=== PATIENT | male | born 1960 | race Caucasian/White ===

== ENCOUNTER 2022-04-03 09:41 | Emergency (ER) | payer BC, SELFPAY ==
[2022-04-03 09:44] VITALS: BP 180/93; PULSE 57; RESP 18; TEMP 36.8; O2SAT 99; BMI 30.3
[2022-04-03 10:11] VITALS: O2SAT 99
--- NOTE | 2022-04-03 10:34 | ED_ITS ---
HPI - General Adult General Chief complaint: High Blood Pressure Stated complaint: elevated bp Time Seen by Provider: 04/03/22 10:03 Source: patient Mode of arrival: ambulatory Limitations: no limitations History of Present Illness HPI narrative: 62-year-old male coming in today concerned about high blood pressure. States that his blood pressure generally in the 130s systolic. In the last 6 months they have been up into the 150s so 2 days ago he started a new dose of lisinopril at 30 mg daily this medicine came from the [facility], patient does believe his medicines were made in [place]. This morning his blood pressure was 210 systolic. He was seen by his clinic doctor this morning who recommended he come to the ER because he was also feeling slightly lightheaded, mild headache on the left side of the head, and he was also beginning to develop some mild chest pressure on the left side of the chest. He does not feel short of breath. He is not diaphoretic. He states that his lightheadedness is better already. Related Data Home Medications Medication Instructions Recorded Confirmed aspirin 81 mg chewable tablet 81 mg PO DAILY 04/03/22 04/03/22 (Aspirin Childrens) atorvastatin 40 mg tablet 40 mg PO DAILY 04/03/22 04/03/22 cetirizine 10 mg tablet 10 mg PO DAILY 04/03/22 04/03/22 ipratropium bromide 21 mcg (0.03 2 spray intranasal DAILY 04/03/22 04/03/22 %) nasal spray lisinopril 30 mg tablet 30 mg PO DAILY 04/03/22 04/03/22 metoprolol succinate 25 mg 25 mg PO DAILY 04/03/22 04/03/22 tablet,extended release 24 hr omeprazole 20 mg capsule,delayed 20 mg PO DAILY 04/03/22 04/03/22 release sildenafil 100 mg tablet 100 mg PO PRN 04/03/22 Allergies Allergy/AdvReac Type Severity Reaction Status Date / Time bee pollen Allergy Swelling Verified 04/03/22 09:51 Penicillins Allergy Verified 04/03/22 09:51 shellfish derived Allergy Anaphylaxis Verified 04/03/22 09:51 sharma spice Allergy swelling Uncoded 09/15/21 13:04 Review of Systems Status of ROS: Reports: 10 or more systems reviewed and unremarkable except as noted in History and below [facility] Medical History GERD (gastroesophageal reflux disease) Hypertension Surgical History History of total left knee replacement Social History Smoking Status: Current every day smoker What tobacco products do you use: cigarettes Smoking packs per day: 0.5 Smoking cigarettes per day: 10.0 Do you use any of these nicotine containing products: None Second hand tobacco smoke exposure: No How often do you have a drink containing alcohol: 2-3 times a week How many standard drinks containing alcohol do you have on a typical day: 1 or 2 AUDIT-C Alcohol total score: 3 Non-prescribed substance use: marijuana (any form) service: No Exam Narrative: Exam Narrative: Well-nourished well-developed patient in no acute distress. Looks older than stated age. Alert and oriented. Answers questions appropriately. Mood and affect are appropriate. Thoughts are goal oriented and rational. No tangential or magical thinking noted. Patient speaks in full sentences without needing to catch their breath. HEENT: Normocephalic atraumatic. Pupils are equally round reactive to light. Extraocular muscles are intact. Conjunctivae are moist without any icterus noted. Moist mucous membranes. Posterior pharynx is normal. Neck is soft without any lymphadenopathy or thyromegaly. No masses are appreciated. Cardiovascular: Heart is regular rate and rhythm S1 and S2 are present without any murmurs. Lungs: Clear to auscultation bilaterally no wheezes rhonchi or rales are appreciated. Patient takes deep breaths without any discomfort. Abdomen: Soft and protuberant. Normal bowel sounds. No guarding or rebound. Extremities: Bilateral lower extremities are without edema. Normal DP and PT pulses. Skin: Well perfused without any obvious rashes. Const: Vital Signs, click to edit/add: Vital Signs - 24 hr 04/03/22 09:44 04/03/22 10:11 04/03/22 11:40 Temperature 98.3 F Pulse Rate [Right Pulse Oximeter] 57 L 56 L Respiratory Rate 18 16 Blood Pressure [Ri ght Upper Arm] 180/93 H 133/83 Pulse Oximetry 99 99 98 Oxygen Delivery Me thod Room Air Room Air Course Course Hospital Course: EKG, read by me, showed sinus bradycardia with a pulse of 56 with premature ventricular complexes. Serial troponins unremarkable. Lab work unremarkable. As patient waited for lab results he did relax and his blood pressure did come down quite nicely to 133/83. He was not having any more dizziness or chest discomfort like he felt this morning. He stated that his headache was about a 2/10. Patient was feeling reassured and comfortable with discharge. Vital Signs Vital signs: Initial Vital Signs Temperature 98.3 F 04/03/22 09:44 Temperature Source Temporal Artery Scan 04/03/22 09:44 Pulse Rate 57 L 04/03/22 09:44 Respiratory Rate 18 04/03/22 09:44 Blood Pressure 180/93 H 04/03/22 09:44 Blood Pressure Mean 122 04/03/22 09:44 Blood Pressure Position Sitting 04/03/22 09:44 Pulse Oximetry 99 04/03/22 09:44 Oxygen Delivery Method 04/03/22 09:44 Vital Signs Temperature 98.3 F 04/03/22 09:44 Pulse Rate 57 L 04/03/22 09:44 Respiratory Rate 18 04/03/22 09:44 Blood Pressure 180/93 H 04/03/22 09:44 Pulse Oximetry 99 04/03/22 09:44 Oxygen Delivery Method 04/03/22 09:44 Temperature 98.3 F 04/03/22 09:44 Pulse Rate 56 L 04/03/22 11:40 Respiratory Rate 16 04/03/22 11:40 Blood Pressure 133/83 04/03/22 11:40 Pulse Oximetry 98 04/03/22 11:40 Oxygen Delivery Method 04/03/22 11:40 Medical Decision Making MDM Narrative Medical decision making narrative: Elevated blood pressure. Resolved on its own. Patient to continue his current treatment follow-up with primary care provider. Return to the ER if he develops chest pain or shortness of breath. Medical Records Medical records reviewed: Yes I reviewed the patient's medical records Lab Data Lab results reviewed: Yes I reviewed the patient's lab results Labs: Lab Results 04/03/22 04/03/22 04/03/22 Range/Units 10:11 10:25 10:25 WBC 7.02 (4.50-11.00) K/uL RBC 4.73 (4.30-5.90) m/uL Hgb 15.9 (13.5-17.5) gm/dL Hct 46.5 (37.0-53.0) % MCV 98 (80-100) fL MCH 34 (26-34) pg MCHC 34 (32-36) gm/dL RDW Coeff of Alon 12.8 (11.5-15.5) % Plt Count 208 (140-440) K/uL Neut % (Auto) 60.0 (42.0-72.0) % Lymph % (Auto) 26.8 (20-44) % Wise % (Auto) 9.3 (0.0-11.0) % Eos % (Auto) 3.6 (0.0-7.0) % Baso % (Auto) 0.3 (0.0-3.0) % Neut # (Auto) 4.22 (1.7-7.0) K/uL Lymph # (Auto) 1.88 (0.90-2.90) K/uL Wise # (Auto) 0.70 (0.00-0.90) K/UL Eos # (Auto) 0.25 (0.00-0.50) K/uL Baso # (Auto) 0.02 (0.00-0.30) K/uL Sodium 138 (135-149) mmol/L Potassium 4.1 (3.6-5.1) mmol/L Chloride 108 (96-114) mmol/L Carbon Dioxide 27 (20-32) mmol/L BUN 21 (7-30) mg/dL Creatinine 0.9 (0.5-1.5) mg/dL Estimated Creat Clear 74.63 Estimated GFR 95 ml/min Glucose 102 (60-115) mg/dL Calcium 8.8 (8.4-10.6) mg/dL Total Bilirubin 0.7 (0.1-1.5) mg/dL Direct Bilirubin 0.1 (0.0-0.5) mg/dL AST 29 (12-35) U/L ALT 37 (4-50) U/L Alkaline Phosphatase 71 (40-150) U/L Total Protein 7.4 (6.0-8.3) g/dL Albumin 4.3 (3.3-5.0) g/dL POC Troponin I 0.01 (0.01-0.04) ng/ml 04/03/22 Range/Units 11:40 WBC (4.50-11.00) K/uL RBC (4.30-5.90) m/uL Hgb (13.5-17.5) gm/dL Hct (37.0-53.0) % MCV (80-100) fL MCH (26-34) pg MCHC (32-36) gm/dL RDW Coeff of Alon (11.5-15.5) % Plt Count (140-440) K/uL Neut % (Auto) (42.0-72.0) % Lymph % (Auto) (20-44) % Wise % (Auto) (0.0-11.0) % Eos % (Auto) (0.0-7.0) % Baso % (Auto) (0.0-3.0) % Neut # (Auto) (1.7-7.0) K/uL Lymph # (Auto) (0.90-2.90) K/uL Wise # (Auto) (0.00-0.90) K/UL Eos # (Auto) (0.00-0.50) K/uL Baso # (Auto) (0.00-0.30) K/uL Sodium (135-149) mmol/L Potassium (3.6-5.1) mmol/L Chloride (96-114) mmol/L Carbon Dioxide (20-32) mmol/L BUN (7-30) mg/dL Creatinine (0.5-1.5) mg/dL Estimated Creat Clear Estimated GFR ml/min Glucose (60-115) mg/dL Calcium (8.4-10.6) mg/dL Total Bilirubin (0.1-1.5) mg/dL Direct Bilirubin (0.0-0.5) mg/dL AST (12-35) U/L ALT (4-50) U/L Alkaline Phosphatase (40-150) U/L Total Protein (6.0-8.3) g/dL Albumin (3.3-5.0) g/dL POC Troponin I 0.01 (0.01-0.04) ng/ml ECG Data Attestation: I personally reviewed and interpreted this ECG as follows: Discharge Plan Discharge Clinical Impression: Elevated blood pressure reading Patient Disposition: Home, Self-Care Condition: Improved Additional Instructions: Continue medications as prescribed. Follow-up with your primary care provider this coming week. Return to the ER if you develop any chest pain or worsening symptoms. Prescriptions: No Action lisinopril 30 mg tablet 30 mg PO DAILY metoprolol succinate 25 mg tablet extended release 24 hr 25 mg PO DAILY atorvastatin 40 mg tablet 40 mg PO DAILY omeprazole 20 mg capsule,delayed release(DR/EC) 20 mg PO DAILY ipratropium bromide 21 mcg (0.03 %) spray,non-aerosol 2 spray INTRANASAL DAILY Label Comments: USE 2 SPRAYS IN EACH NOSTRIL THREE TIMES DAILY cetirizine 10 mg tablet 10 mg PO DAILY sildenafil 100 mg tablet 100 mg PO PRN Label Comments: TAKE 1 TABLET BY MOUTH DAILY NEEDED FOR ERECTILE DYSFUNCTION . TAKE 30 MINUTES TO 4 HOURS BEFORE ACTIVITY . NO MORE THAN 1 TABLET PER DAY aspirin [Aspirin Childrens] 81 mg tablet,chewable 81 mg PO DAILY Follow Up/Referrals: Maria Isabel Marquez DO [Primary Care Provider] - Stand Alone Forms: barcoo Info Instructions
[2022-04-03 10:35] LABS: Basophils Absolute Auto 0.02 K/uL (0.00-0.30); Basophils Percent Auto 0.3 % (0.0-3.0); Eosinophils Absolute Auto 0.25 K/uL (0.00-0.50); Eosinophils Percent Auto 3.6 % (0.0-7.0); Hematocrit 46.5 % (37.0-53.0); Hemoglobin* 15.9 gm/dL (13.5-17.5); Lymphocytes Absolute Auto 1.88 K/uL (0.90-2.90); Lymphocytes Percent Auto 26.8 % (20-44); Mean Corpuscular HGB Conc 34 gm/dL (32-36); Mean Corpuscular Hemoglobin 34 pg (26-34); Mean Corpuscular Volume 98 fL (80-100); Monocytes Percent Auto 9.3 % (0.0-11.0); Neutrophils Absolute Auto 4.22 K/uL (1.7-7.0); Platelet Count* 208 K/uL (140-440); RDW Coefficient of Variation % 12.8 % (11.5-15.5); Red Blood Count 4.73 m/uL (4.30-5.90); White Blood Count* 7.02 K/uL (4.50-11.00)
[2022-04-03 10:36] LABS: Slide Review Reflex No
[2022-04-03 10:47] LABS: Albumin* 4.3 g/dL (3.3-5.0)
[2022-04-03 10:48] LABS: Chloride* 108 mmol/L (96-114); Potassium* 4.1 mmol/L (3.6-5.1); Sodium* 138 mmol/L (135-149)
[2022-04-03 10:50] LABS: Bilirubin Direct* 0.1 mg/dL (0.0-0.5); Bilirubin Total* 0.7 mg/dL (0.1-1.5); Carbon Dioxide* 27 mmol/L (20-32); Creatinine* 0.9 mg/dL (0.5-1.5); Est. Creatinine Clearance* 74.63; Estimated Glomerular Filt Rate 95 ml/min
[2022-04-03 10:51] LABS: Alanine Aminotransferase* 37 U/L (4-50); Alkaline Phosphatase* 71 U/L (40-150); Aspartate Amino Transferase* 29 U/L (12-35); Blood Urea Nitrogen* 21 mg/dL (7-30); Calcium* 8.8 mg/dL (8.4-10.6); Glucose* 102 mg/dL (60-115); Total Protein* 7.4 g/dL (6.0-8.3)
[2022-04-03 10:56] LABS: Troponin, Point-of-Care* 0.01 ng/ml (0.01-0.04)
[2022-04-03 11:40] VITALS: BP 133/83; PULSE 56; RESP 16; O2SAT 98
[2022-04-03 12:24] LABS: Troponin, Point-of-Care* 0.01 ng/ml (0.01-0.04)
== END 2022-04-03 13:07 | disposition home or self-care (01) ==
PROVIDERS: Emergency Provider Family Medicine; PCP Family Medicine
DX: I10 Essential (primary) hypertension (principal)
CPT/HCPCS: 36415; 80048; 80076; 84484; 85025; 93005; 94761; 99284

== ENCOUNTER 2024-02-25 16:49 | Emergency (ER) | payer OTHER, SELFPAY ==
[2024-02-25 18:09] VITALS: BP 154/80; PULSE 63; RESP 16; TEMP 36.5; O2SAT 96; BMI 30.8
--- OUTSIDE RECORDS SUMMARY | 2024-02-25 18:47 | XMS_ITS | Clinical Summary ---
Author Organization [facility] Address [address] [place] [id number] Care Team Providers Care Clinical Nursing Director Name Role Phone Maria Isabel Marquez DO Primary Care Provider [phone] Allergies Active Allergy Reactions Criticality Noted Date Comments Penicillins 12/02/2018 Medications lisinopril (PRINIVIL/ZESTRI L) 20 MG tablet Take 20 mg by mouth daily Active metoprolol tartrate (LOPRESSOR) 50 MG tablet Take 50 mg by mouth 2 times daily Active Social History Tobacco Use Types Packs/Day Years Used Date Smoking Tobacco: Never Smokeless Tobacco: Never Alcohol Use Standard Drinks/Week Comments Not Currently 0 (1 standard drink = 0.6 oz pur e alcohol) Adolescent Education Answer Date Record ed Getting School Help Needed Not on file 12/05 Sex and Gender Information Value Date Recorded Sex Assigned at Not on file Legal Sex Male 3:[address] Gender Identity Not on file Sexual Orientation Not on file Last Filed Vital Signs Vital Sign Reading Time Taken Comments Blood Pressure 151/90 04/26/2022 8:[address] MANAGER Pulse 56 04/26/2022 8:[address] MANAGER Temperature 36.7 C (98.1 F) 04/26/2022 7:[address] MANAGER Respiratory Rate 20 04/26/2022 7:[address] MANAGER Oxygen Saturation 100% 04/26/2022 8:[address] MANAGER Inhaled Oxygen Concentration - - Weight 88.5 kg (195 lb) 12/02/2018 5:19 AM CDT Height - - Body Mass Index - - Plan of Treatment Health Maintenance Due Date Last Done Comments ADVANCE CARE PLANNING 1960 ANNUAL REVIEW OF HM ORDERS 1958 CT COLONOGRAPHY 1958 FLEX SIG 1958 sDNA (Cologuard) 1958 COLONOSCOPY 01/07/1968 HEPATITIS C SCREENING 01/07/1976 LIPID 1998 COLORECTAL CANCER SCREENING 12/26/2005 FIT 12/26/2005 12/26/2004 DTAP/TDAP/TD IMMUNIZATION (2 - Td or Tdap) 12/21/2021 12/22/2011 Pneumococcal Vaccine: 50+ Years (2 of 2 - PCV) 01/22/2022 01/22/2021 FALL RISK ASSESSMENT 2023 MEDICARE ANNUAL WELLNESS VISIT 2023 01/17/2020 COVID-19 Vaccine ( season) 2023 07/25/2020, 06/27/2020 INFLUENZA VACCINE (#1) 2023 0, 02/23/2019, 02/13/2016, Additional history exists PHQ-2 (once per calendar year) 2024 GLUCOSE 04/26/2025 04/26/2022, 11/22, 12/26/2004 RSV VACCINE (1 - 1-dose 75+ series) 2033 ZOSTER IMMUNIZATION Completed 04/08/2020, 0 HPV IMMUNIZATION Aged Out No longer e ligible based on patient's age to complete this topic MENINGITIS IMMUNIZATION Aged Out No l onger eligible based on patient's age to complete this topic RSV MONOCLONAL ANTIBODY Aged Out No l onger eligible based on patient's age to complete this topic Procedures Procedure Name Priority Date/Time Associated Diagnosis Comments COMPREHENSIVE METABOLIC PANEL STAT 04/26/2022 8:[address] MANAGER OCCULT BLOOD STOOL STAT 12/26/2004 6: [address] MANAGER from Last 3 Months or Most Recently Relevant to Health Maintenance Results * (ABNORMAL) Comprehensive metabolic panel (04/26/2022 8:[address] MANAGER) Sodium 137 136 - 145 mmol/L 04/26/2022 9:[address] MANAGER [facility] Potassium 4.6 3.4 - 5.3 mmol/L 04/26/2022 9:[address] MANAGER [facility] Chloride 103 98 - 107 mmol/L 04/26/2022 9:12 AM [facility] Carbon Dioxide (CO2) 25 22 - 29 mmol/L 04/26/2022 9:12 AM [facility] Anion Gap 9 7 - 15 mmol/L 04/26/2022 9:12 AM [facility] Urea Nitrogen 23.3(H) 8.0 - 23.0 mg/dL 04/26/2022 9:12 AM [facility] Creatinine 1.02 0.67 - 1.17 mg/dL 04/26/2022 9:12 AM [facility] Calcium 9.2 8.8 - 10.2 mg/dL 04/26/2022 9:12 AM [facility] Glucose 129(H) 70 - 99 mg/dL 04/26/2022 9:12 AM [facility] Alkaline Phosphatase 78 40 - 129 U/L 04/26/2022 9:12 AM [facility] AST 32 10 - 50 U/L 04/26/2022 9:12 AM [facility] ALT 42 10 - 50 U/L 04/26/2022 9:12 AM [facility] Protein Total 7.1 6.4 - 8.3 g/dL 04/26/2022 9:12 AM [facility] Albumin 4.2 3.5 - 5.2 g/dL 04/26/2022 9:12 AM [facility] Bilirubin Total 0.6 <=1.2 mg/dL 04/26/2022 9:12 AM [facility] GFR Estimate 82 >60 mL/min/1.7 3m2 04/26/2022 9:12 AM [facility] Comment:eGFR calculated usid g 2020 CKD-EPI equation. Blood VENOUS LINE / Unknown Venipuncture / Unknown 04/26/2022 8:[address]NA[address] 04/26/2022 8:54 AM [facility] Rebel Irving MD LAB - BLOOD ORDERABLES Fi nal Result LABORATORY [facility] [address] Lab (1st floor, no room number) [place] [address], [facility] [phone] * Occult blood stool (12/26/2004 6:[address] MANAGER) Occult Blood Negative NEG MISYS 12/26/2004 6:[address] MANAGER 12/26/2004 6:[address]NA[address] Camille De Anda MD LAB - STOOLS ORDERABLES Final Result MISYS from Last 3 Months or Most Recently Relevant to Health Maintenance Insurance [facility] Care Teams Clinical Nursing Director Relationship Specialty Start Date End Date Maria Isabel Marquez DO PCP - General Family Practice 12/02/18
--- OUTSIDE RECORDS SUMMARY | 2024-02-25 18:47 | XMS_ITS | Referral Summary ---
Author Organization [facility] Address [address] [place] [id number] Care Team Providers Care Co Founder And President Name Role Phone Maria Isabel Marquez DO Primary Care Provider [phone] Allergies Active Allergy Reactions Criticality Noted Date [...] on file Legal Sex Male 3:32 AM PHARMACOVIGILANCE SCIENTIST Gender Identity Not on file Sexual Orientation Not on file Last Filed Vital Signs Vital Sign Reading Time Taken Comments Blood Pressure 151/90 04/26/2022 8:50 AM PHARMACOVIGILANCE SCIENTIST Pulse 56 04/26/2022 8:50 AM PHARMACOVIGILANCE SCIENTIST Temperature 36.7 C (98.1 F) 04/26/2022 7:38 AM PHARMACOVIGILANCE SCIENTIST Respiratory Rate 20 04/26/2022 7:38 AM PHARMACOVIGILANCE SCIENTIST Oxygen Saturation 100% 04/26/2022 8:50 AM PHARMACOVIGILANCE SCIENTIST Inhaled Oxygen Concentration - - Weight 88.5 kg (195 lb) 12/02/2018 5:19 AM CDT Height - - Body Mass Index - - Plan of Treatment Not on file Procedures Procedure Name Priority Date/Time Associated Diagnosis Comments COMPREHENSIVE METABOLIC PANEL STAT 04/26/2022 8:47 AM PHARMACOVIGILANCE SCIENTIST OCCULT BLOOD STOOL STAT 12/26/2004 6: 20 AM PHARMACOVIGILANCE SCIENTIST from Last 3 Months or Most Recently Relevant to Health Maintenance Results * (ABNORMAL) Comprehensive metabolic panel (04/26/2022 8:47 AM PHARMACOVIGILANCE SCIENTIST) Sodium 137 136 - 145 mmol/L 04/26/2022 9:12 AM [facility] Potassium 4.6 3.4 - 5.3 mmol/L 04/26/2022 9:12 AM [facility] Chloride 103 98 - 107 mmol/L 04/26/2022 9:12 AM [facility] Carbon Dioxide (CO2) 25 22 - 29 mmol/L 04/26/2022 9:12 AM [facility] Anion Gap 9 7 - 15 mmol/L 04/26/2022 9:12 AM [facility] Urea Nitrogen 23.3(H) 8.0 - 23.0 mg/dL 04/26/2022 9:12 AM [facility] Creatinine 1.02 0.67 - 1.17 mg/dL 04/26/2022 9:12 AM [facility] Calcium 9.2 8.8 - 10.2 mg/dL 04/26/2022 9:12 AM [facility] Glucose 129(H) 70 - 99 mg/dL 04/26/2022 9:12 AM [facility] Alkaline Phosphatase 78 40 - 129 U/L 04/26/2022 9:12 AM [facility] AST 32 10 - 50 U/L 04/26/2022 9:12 AM [facility] ALT 42 10 - 50 U/L 04/26/2022 9:12 AM [facility] Protein Total 7.1 6.4 - 8.3 g/dL 04/26/2022 9:12 AM [facility] Albumin 4.2 3.5 - 5.2 g/dL 04/26/2022 9:12 AM [facility] Bilirubin Total 0.6 <=1.2 mg/dL 04/26/2022 9:12 AM [facility] GFR Estimate 82 >60 mL/min/1.7 3m2 04/26/2022 9:12 AM [facility] Comment:eGFR calculated us2020 CKD-EPI equation. Blood VENOUS LINE / Unknown Venipuncture / Unknown 04/26/2022 8:47 AM PHARMACOVIGILANCE SCIENTIST 04/26/2022 8:54 AM PHARMACOVIGILANCE SCIENTIST us Rebel Irving MD LAB - BLOOD ORDERABLES Fi nal Result [facility] [address] [facility] Lab (1st floor, no room number) [place] [address], [facility] [phone] * Occult blood stool (12/26/2004 6:20 AM PHARMACOVIGILANCE SCIENTIST) Occult Blood Negative NEG MISYS 12/26/2004 6:20 AM PHARMACOVIGILANCE SCIENTIST 12/26/2004 6:23 AM PHARMACOVIGILANCE SCIENTIST us Camille De Anda MD LAB - STOOLS ORDERABLES Final Result MISYS from Last 3 Months or Most Recently Relevant to Health Maintenance Insurance [facility] Care Teams Co Founder And President Relationship Specialty Start Date End Date Maria Isabel Marquez DO PCP - General Family Practice 12/02/18
--- NOTE | 2024-02-25 18:51 | ED.GENADULT ---
HPI - General Adult General Time Seen by Provider: 18:51 Date Seen: 02/25/24 Chief complaint: Hypertension Stated complaint: BP very high Time Seen by Provider: 02/25/24 18:51 Source: patient and RN notes reviewed Mode of arrival: ambulatory Limitations: no limitations History of Present Illness HPI narrative: Cameron is a very pleasant 64-year-old gentleman with history of hypertension recently challenging control who comes to the emergency room with complaints of elevated blood pressure headache and left arm pain. Patient noted that 3 weeks ago he went to the [facility] in [place] at which time his blood pressure was elevated. They started him on a 3rd blood pressure medication in addition to his normal lisinopril and metoprolol but it did not work and thus they exchanged it for medicine called amlodipine. He was initially on 5 mg but has been increased to 10 mg over the last 2 days. He has also started working out more and lifting weights at the gym as he was told that he needed to have a healthier lifestyle. Patient notes that he did not sleep well overnight because of pain in his left shoulder radiating into the left side of his neck. This was associated with a significant headache mainly on the top of his scalp. He did not have any visual changes with this. Notes that his blood pressure was over 200 this morning over 115. He notes that it stayed elevated. He notes that his headache is still present but minor now. His shoulder pain is still present but does not change with movement. Denies shortness of breath. Does smoke. Also has of quite a bit of coffee throughout the day and recently started making mushroom coffee. No numbness or tingling of the extremities at this time. Denies chest pain. Related Data Home Medications ?Medication ?Instructions ?Recorded ?Confirmed aspirin 81 mg chewable tablet 81 mg PO DAILY 04/03/22 02/25/24 (Aspirin Childrens) atorvastatin 40 mg tablet 40 mg PO DAILY 04/03/22 02/25/24 cetirizine 10 mg tablet 10 mg PO DAILY 04/03/22 02/25/24 ipratropium bromide 21 mcg (0.03 2 spray intranasal DAILY 04/03/22 02/25/24 %) nasal spray lisinopril 30 mg tablet 30 mg PO DAILY 04/03/22 02/25/24 omeprazole 20 mg capsule,delayed 20 mg PO DAILY 04/03/22 02/25/24 release sildenafil 100 mg tablet 100 mg PO PRN 04/03/22 amlodipine 10 mg tablet 10 mg PO DAILY 02/25/24 02/25/24 lorazepam 1 mg tablet PO PRN 02/25/24 metoprolol succinate 50 mg 50 mg PO DAILY 02/25/24 02/25/24 tablet,extended release 24 hr pravastatin 40 mg tablet 40 mg PO DAILY 02/25/24 02/25/24 Allergies Allergy/AdvReac Type Severity Reaction Status Date / Time bee pollen Allergy Swelling Verified 02/25/24 18:23 Penicillins Allergy Verified 02/25/24 18:23 shellfish derived Allergy Anaphylaxis Verified 02/25/24 18:23 sharma spice Allergy swelling Uncoded 09/15/21 13:04 Review of Systems Status of ROS: Reports: 10 or more systems reviewed and unremarkable except as noted in History and below Const: Reports: fatigue; Denies: fever or chills Eyes: Denies: change in vision or blurry vision ENMT: Reports: neck pain; Denies: throat pain, nasal discharge or nasal congestion Cardio: Denies: chest pain, palpitations, swelling of feet/ankles, lightheadedness or shortness of breath with exertion Resp: Denies: shortness of breath or cough GI: Denies: abdominal pain, nausea or vomiting : Denies: painful urination Musculo: Reports: neck pain Integ/Breast: Denies: rash or itching Neuro: Reports: headache; Denies: numbness in extremities Endo: Reports: fatigue PFSH PFS Medical History GERD (gastroesophageal reflux disease) ?K21.9 - Gastro-esophageal reflux disease without esophagitis (ICD-10) Hypertension ?I10 - Essential (primary) hypertension (ICD-10) Surgical History History of total left knee replacement ?Z96.652 - Presence of left artificial knee joint (ICD-10) Social History Smoking Status: Current every day smoker What tobacco products do you use: cigarettes Smoking packs per day: 0.5 Smoking cigarettes per day: 10.0 Do you use any of these nicotine containing products: None Second hand tobacco smoke exposure: No How often do you have a drink containing alcohol: 2-3 times a week How many standard drinks containing alcohol do you have on a typical day: 1 or 2 AUDIT-C Alcohol total score: 3 Non-prescribed substance use: marijuana (any form) service: No Exam Narrative: Exam Narrative: Alert and oriented. Very pleasant gentleman. External ears eyes nose clear. Neck is supple. No midline cervical tenderness. No pain with palpation over the left trapezius. Some discomfort associated with palpation of the paraspinous musculature from C6-T2. Heart with regular rate and rhythm and lungs are clear bilaterally. Abdomen soft. Moving all extremities. Lower extremities without edema. Const: Vital Signs, click to edit/add: Vital Signs - 24 hr 02/25/24 18:09 02/25/24 20:06 02/25/24 22:06 Temperature 97.7 F 96.8 F L Pulse Rate [Pulse Oximeter] 63 50 L 50 L Respiratory Rate 16 18 16 Blood Pressure [Ri ght Upper Arm] 154/80 H 142/89 H 144/84 H Pulse Oximetry 96 96 97 Oxygen Delivery Me thod Room Air Room Air Room Air Documenting provider has reviewed patient's vital signs: yes Course Course ED Course: Differential diagnosis includes but is not limited to intracranial bleed, acute coronary event, fluid retention, pneumonia. Will draw CBC, comprehensive panel, troponin, magnesium. Will also do chest x-ray head CT and EKG. Reevaluation(s) Reevaluation #1: At this time blood pressure is improved to 150 4/80. Patient describing left shoulder pain which I think is muscular although he really has no pain with movement. Head CT reassuring. Chest x-ray shows increased lung markings consistent with some mild pulmonary edema and thus added a proBNP which was slightly elevated at 271 with no previous values for comparison. Vital Signs Vital signs: Initial Vital Signs Temperature 97.7 F 02/25/24 18:09 Temperature Source Temporal Artery Scan 02/25/24 18:09 Pulse Rate 63 02/25/24 18:09 Respiratory Rate 16 02/25/24 18:09 Blood Pressure 154/80 H 02/25/24 18:09 Blood Pressure Mean 104 02/25/24 18:09 Blood Pressure Position Sitting 02/25/24 18:09 Pulse Oximetry 96 02/25/24 18:09 Oxygen Delivery Method Room Air 02/25/24 18:09 Vital Signs Temperature 97.7 F 02/25/24 18:09 Pulse Rate 63 02/25/24 18:09 Respiratory Rate 16 02/25/24 18:09 Blood Pressure 154/80 H 02/25/24 18:09 Pulse Oximetry 96 02/25/24 18:09 Oxygen Delivery Method Room Air 02/25/24 18:09 Temperature 96.8 F L 02/25/24 20:06 Pulse Rate 50 L 02/25/24 22:06 Respiratory Rate 16 02/25/24 22:06 Blood Pressure 144/84 H 02/25/24 22:06 Pulse Oximetry 97 02/25/24 22:06 Oxygen Delivery Method Room Air 02/25/24 22:06 Medications Administered Medications: Generic Name Dose Route Start Last Admin Trade Name Freq PRN Reason Stop Dose Admin Furosemide 40 mg 02/25/24 21:49 02/25/24 22:05 Furosemide 10 Mg/Ml Inj IVP 02/25/24 21:50 Not Given ONCE ONE Furosemide 40 mg 02/25/24 21:53 02/25/24 22:05 Furosemide 40 Mg Tablet PO 02/25/24 21:54 40 mg ONCE ONE Administration Medical Decision Making MDM Narrative Medical decision making narrative: 1. Hypertension-patient currently on amlodipine 10 mg, lisinopril and metoprolol. Blood pressure 154 systolic upon arrival and 144 departure. Should also see improvement with the dose of Lasix that would be given tonight. Follow-up with primary MD for further evaluation. Suggest ultrasound of the renal arteries as blood pressure seems to be very hard to control. 2. New onset CHF-this appears to be mild but proBNP slightly elevated with markings of some vascular congestion on chest x-ray. Troponin is negative and EKG reassuring. I do feel confident that 1 for troponin was sufficient as patient has actually been having symptoms for greater than 12 hours. Patient will take 40 mg of Lasix at home tonight. He will follow-up with his primary at the beginning of the week as he will need echocardiogram and further evaluation. Return to the emergency room with difficulty breathing which he is not experiencing increasing blood pressure problems or chest pain. 3. Headache-almost entirely resolved with no evidence of abnormality on CT 4. Disposition-home at this time return/seek medical attention for worsening symptoms and as needed. Medical Records Medical records reviewed: Yes I reviewed the patient's medical records Lab Data Lab results reviewed: Yes I reviewed the patient's lab results Labs: Lab Results 02/25/24 02/25/24 02/25/24 Range/Units 19:07 19:33 21:10 WBC 8.24 (4.50-11.00) K/uL RBC 4.61 (4.30-5.90) m/uL Hgb 15.2 (13.5-17.5) gm/dL Hct 44.0 (37.0-53.0) % MCV 95 (80-100) fL MCH 33 (26-34) pg MCHC 35 (32-36) gm/dL RDW Coeff of Alon 12.6 (11.5-15.5) % Plt Count 254 (140-440) K/uL Neut % (Auto) 63.4 (42.0-72.0) % Lymph % (Auto) 24.0 (20-44) % [place] % (Auto) 9.2 (0.0-11.0) % Eos % (Auto) 3.2 (0.0-7.0) % Baso % (Auto) 0.1 (0.0-3.0) % Neut # (Auto) 5.22 (1.7-7.0) K/uL Lymph # (Auto) 1.98 (0.90-2.90) K/uL [place] # (Auto) 0.80 (0.00-0.90) K/UL Eos # (Auto) 0.26 (0.00-0.50) K/uL Baso # (Auto) 0.01 (0.00-0.30) K/uL Abs Immat Gran (auto) 0.01 (0.00-0.30) K/uL Imm/Tot Granulo (auto) 0.1 % Sodium 135 (135-149) mmol/L Potassium 3.9 (3.6-5.1) mmol/L Chloride 105 (96-114) mmol/L Carbon Dioxide 22 (20-32) mmol/L Anion Gap 8 (7-15) mEq/L BUN 23 (7-30) mg/dL Creatinine 1.2 (0.5-1.5) mg/dL Estimated Creat Clear 62.52 Estimated GFR 67 ml/min Glucose 109 (60-115) mg/dL Calcium 9.0 (8.4-10.6) mg/dL Magnesium 2.3 (1.5-2.6) mg/dL Total Bilirubin 0.6 (0.1-1.5) mg/dL AST 110 H (12-35) U/L ALT 72 H (4-50) U/L Alkaline Phosphatase 62 (40-150) U/L NT-Pro-B Natriuret Pep 271 pg/mL Total Protein 7.1 (6.0-8.3) g/dL Albumin 4.3 (3.3-5.0) g/dL Lab Acknowledgement Test Added POC Troponin I 0.00 L (0.01-0.04) ng/ml Imaging Data Chest x-ray: Attestation: I have reviewed the pertinent imaging results. My impression: Increased lung markings without evidence of widened mediastinum. Radiologist's impression: Single view of the chest Comparison: None Findings/Impression: Cardiomegaly and suspected mild volume overload. CT scan - head: Attestation: I have reviewed the pertinent imaging results. Radiologist's impression: The ventricles and cortical sulci appear age-appropriate. No midline shift or mass effect. No acute intracranial hemorrhage or extra-axial fluid collection. Baca-white matter differentiation is grossly maintained. White matter attenuation is within normal limits. Intracranial vessels are unremarkable for technique. Midline structures are unremarkable. The calvarium appears grossly intact. Mild mucosal thickening inferior right maxillary sinus. No paranasal sinus air-fluid level or mastoid effusion. Unremarkable orbits. IMPRESSION: 1. No CT evidence of acute intracranial abnormality. ECG Data Attestation: I personally reviewed and interpreted this ECG as follows: Interpretation: EKG by my read shows sinus bradycardia at a rate of 53. QT and KS intervals within normal limits. No acute ST or T-wave changes noted. Discharge Plan Discharge Clinical Impression: Congestive heart failure, Headache, Hypertension Patient Disposition: Home, Self-Care Condition: Improved Additional Instructions: Recommend taking Lasix tonight 40 mg. Note that this will cause you to urinate. Your chest x-ray had evidence of fluid retention or very mild pulmonary edema. You had a mild elevation of proBNP. Your creatinine was normal at 1.2. Follow-up with your primary MD to schedule recheck of your fluid status. Would schedule echocardiogram or an ultrasound of the heart as well. I would also suggest ultrasound of the renal arteries to find out if a narrowing or stenosis at this level is causing some of the fluid retention and elevated blood pressure. Return to the emergency room for worsening symptoms and as needed. Prescriptions: No Action lisinopril 30 mg tablet 30 mg PO DAILY atorvastatin 40 mg tablet 40 mg PO DAILY omeprazole 20 mg capsule,delayed release(DR/EC) 20 mg PO DAILY ipratropium bromide 21 mcg (0.03 %) spray,non-aerosol 2 spray INTRANASAL DAILY Patient Comments: USE 2 SPRAYS IN EACH NOSTRIL THREE TIMES DAILY cetirizine 10 mg tablet 10 mg PO DAILY sildenafil 100 mg tablet 100 mg PO PRN Patient Comments: TAKE 1 TABLET BY MOUTH DAILY NEEDED FOR ERECTILE DYSFUNCTION . TAKE 30 MINUTES TO 4 HOURS BEFORE ACTIVITY . NO MORE THAN 1 TABLET PER DAY aspirin [Aspirin Childrens] 81 mg tablet,chewable 81 mg PO DAILY lorazepam 1 mg tablet PO PRN Patient Comments: helps relax when nervous pravastatin 40 mg tablet 40 mg PO DAILY metoprolol succinate 50 mg tablet extended release 24 hr 50 mg PO DAILY amlodipine 10 mg tablet 10 mg PO DAILY Follow Up/Referrals: Maria Isabel Marquez DO [Primary Care Provider] - Stand Alone Forms: [employer] Info Instructions
--- NOTE | 2024-02-25 19:07 | CRLHL7_ITS ---
For Patients: As a result of the Century Cures Act, medical imaging exams and procedure reports are released immediately into your electronic medical record. You may view this report before your referring provider. If you have questions, please contact your health care provider. INDICATION: Headache, hypertension TECHNIQUE: Noncontrast axial CT of the head. Coronal and sagittal reformats. Bone and soft tissue algorithms. COMPARISON: None. FINDINGS: The ventricles and cortical sulci appear age-appropriate. No midline shift or mass effect. No acute intracranial hemorrhage or extra-axial fluid collection. Baca-white matter differentiation is grossly maintained. White matter attenuation is within normal limits. Intracranial vessels are unremarkable for technique. Midline structures are unremarkable. The calvarium appears grossly intact. Mild mucosal thickening inferior right maxillary sinus. No paranasal sinus air-fluid level or mastoid effusion. Unremarkable orbits. IMPRESSION: 1. No CT evidence of acute intracranial abnormality. Please note that all CT scans at this facility use dose modulation, iterative reconstruction, and/or weight-based dosing when appropriate to reduce radiation dose to as low as reasonably achievable. Dictated by Cristiane Rodriguez MD @ 02/25/2024 7:54:42 PM (Electronically Signed)
--- OUTSIDE RECORDS SUMMARY | 2024-02-25 19:14 | XMS_ITS | Clinical Summary ---
Author Organization [facility] Address [place], [place] [address] Care Team Providers Care Veterans Contact Representative Name Role Phone Maria Isabel Marquez DO Primary Care Provider Allergies Active Allergy Reactions Criticality Noted Date Comments Atorvastatin Myalgia 03/03/2023 Bee Venom Protein (Honey Bee) Edema High 07/15/2020 Penicillins Rash,Other - Describ e In Comment Field 01/25/2006 Spice Flavor Dizziness,Edema 07/06/2007 sharma Medications aspirin enteric coated 81 mg tablet Take 1 tablet by mouth once daily with a meal. 0 0 Active cholecalciferol (VITAMIN D-3) 2,000 unit capsule Take 1 capsule by mouth once daily. 0 0 Active albuterol HFA (Ventolin HFA) 90 mcg/actuation inhalerIndicatio ns:Tobacco abuse,Chronic cough Inhale 1 Puff by mouth 4 times daily if needed for Shortness of Breath 1st choice. 1 Each 1 3 Active multivitamins-mi nerals-lutein (Multivitamin 50 Plus) tab tablet Take 1 Tablet by mouth once daily. Active sildenafil citrate (VIAGRA) 100 mg tabletIndication s:Impotence of organic origin Take 1 tablet by mouth once daily if needed for erectile dysfunction. Take 30 minutes to 4 hours before sexual activity. Max of 1 tablet in 24 hours. 12 Tablet 3 3 Active lisinopriL (PRINIVIL; ZESTRIL) 30 mg tabletIndication s:Essential hypertension Take 1 Tablet (30 mg) by mouth once daily. 100 Tablet 3 4 Active LORazepam 1 mg tabletIndication s:Adjustment disorder with anxiety Take 1 tablet by mouth twice daily if needed for anxiety. 15 Tablet 4 Active metoprolol succinate (TOPROL XL) 50 mg sustained-releas e tabletIndication s:Essential hypertension Take 1 Tablet (50 mg) by mouth once daily. 100 Tablet 3 4 Active omeprazole (PRILOSEC) 20 mg Delayed-Release capsuleIndicatio ns:Gastroesophag eal reflux disease without esophagitis Take 1 Capsule (20 mg) by mouth once daily before a meal. 100 Capsule 3 4 Active pravastatin (PRAVACHOL) 40 mg tabletIndication s:Dyslipidemia Take 1 Tablet (40 mg) by mouth at bedtime. 100 Tablet 3 4 Active cetirizine (ZYRTEC) 10 mg tabletIndication s:PND (post-nasal drip) TAKE 1 TABLET BY MOUTH EVERY DAY 90 Tablet 2 4 Active amLODIPine (NORVASC) 10 mg tabletIndication s:Essential hypertension Take 1 Tablet (10 mg) by mouth once daily. 30 Tablet 4 Active amLODIPine (NORVASC) 5 mg tabletIndication s:Essential hypertension Take 1 Tablet (5 mg) by mouth once daily. 30 Tablet 4 02/17/20 24 Discontin ued(Reord er (E-cancel not sent)) Active Problems Problem Noted Date Diagnosed Date Prediabetes 07/11/2020 AWILDA (obstructive sleep apnea) 07/11/2020 History of diverticulitis 11/29/2019 Diverticulitis 12/04/2018 Primary osteoarthritis of left knee 08/29/2018 Mixed dyslipidemia 08/29/2018 Overview (12/31/2023): ASCVD 10 year risk 13.71%. Recommended statin. Dyslipidemia 08/17/2017 Overview (08/17/2017): ASCVD 10 year risk 13.71%. Recommended statin. Martinez's esophagus without dysplasia 11/12/2016 Overview (05/05/2023): EGD 10/2016 Martinez's, repeat EGD in 1 year EGD 01/2018 normal, repeat EGD in 3 years EGD 04/2023 No Martinez's, repeat EGD in 5 years Tobacco abuse 07/10/2014 Adjustment disorder with anxiety 04/16/2014 Anxiety 04/14/2014 Conductive hearing loss of both ears 03/30/2014 Colon polyp 10/08/2013 Overview (01/10/2020): Colonoscopy 11/2014 polyp repeat in 5 years Colonoscopy 12/2019 polyp, repeat in 5 years GERD (gastroesophageal reflux disease) 3 Vocal cord nodule 12/22/2011 Insomnia, unspecified 10/30/2009 Nasal septal deviation 11/06/2008 Hypertrophy of nasal turbinates 11/06/2008 Impotence of organic origin 02/04/2007 Unspecified essential hypertension 01/25/2006 Resolved Problems Problem Noted Date Diagnosed Date Resolved Date Issue of repeat prescription 07/13/2014 07/13/2014 Encounters Date Type Department Care Team Description 02/25/2024 Nurse Triage [facility] [address] [place] [address] Maria Isabel Marquez, Arm pain, high blood pressure 02/25/2024 Nurse Triage [facility] [address] [place] [address] Maria Isabel Marquez, TRIAGE 02/17/2024 10:00 AM OPERATING ROOM ORDERLY Nurse/Clinic Staff Only [facility] [address] [place] [address] Blood Pressure 02/17/2024 Telephone [facility] [address] [place] [address] Maria Isabel Marquez, Blood Pressure 02/16/2024 Travel 02/05/2024 Travel 01/31/2024 Refill [place] [id number] [place] [address] Maria Isabel Marquez, Refill Request (Amlodipine) 01/24/2024 10:00 AM OPERATING ROOM ORDERLY Nurse/Clinic Staff Only [facility] [address] [place] [address] Blood Pressure 01/24/2024 9:00 AM OPERATING ROOM ORDERLY Orders Only [facility] [address] [place] [address] Lab 01/24/2024 Telephone [facility] [address] [place] [address] Maria Isabel Marquez, Blood Pressure 01/24/2024 Travel 01/19/2024 Travel 01/17/2024 Refill [facility] [address] [place] [address] Maria Isabel Marquez, Refill Request (Spironolactone) 01/11/2024 2:45 PM OPERATING ROOM ORDERLY Nurse/Clinic Staff Only [facility] [address] [place] [address] Blood Pressure 01/11/2024 Telephone [facility] [address] [place] [address] Maria Isabel Marquez, Blood Pressure; RETURN OF PHONE CALL 01/11/2024 Travel 01/10/2024 9:00 AM OPERATING ROOM ORDERLY Ancillary Procedure [facility] [address] [place] [address] 01/10/2024 8:30 AM OPERATING ROOM ORDERLY Ancillary Procedure [facility] [address] [place] [address] 01/10/2024 Refill [facility] [address] [place] [address] Maria Isabel Marquez, Refill Request (Cetirizine) 01/09/2024 Travel 01/03/2024 Telephone [facility] [address] [place] [address] Maria Isabel Marquez DO Appointment; Blood Pressure 12/31/2023 9:30 AM OPERATING ROOM ORDERLY Office Visit [facility] [address] [place] [address] Maria Iasbel Marquez, DO Medication Management; Immunization/Inject ion (Declined COVID-19 and flu/) 12/31/2023 Travel 11/30/2023 Refill [facility] [address] [place] [address] Maria Isabel Marquez, Refill Request (Lisinopril, Metoprolol Succinate) from Last 3 Months Immunizations Name Administration Dates Next Due COVID-19 vaccine (Moderna 100mcg/0.5mL) PF, MDV 07/25/2020,06/27/2020 Influenza, IIV3 (Age >=3 years) 12/11/2002 Influenza, IIV4 11/29/2019, 0,02/13/2016,2014 Pneumococcal Conj 20-valent (Prevnar 20) 07/02/2022 Pneumococcal Poly,23-Valent (Pneumovax) 01/22/2021 Tdap 07/02/2022,12/22/2011 Zoster (Shingrix-RZV, recombinant) 04/08/2020, Family History Medical History Relation Name Comments Hypertension Father Other Father one kidney Heart Disease Mother congestive hea rt disease Hypertension Mother Stroke Mother Relation Name Status Comments Brother 1 Alive Brother 2 Alive Brother 3 Alive Father (Age 82) Mother (Age 80) Social History Tobacco Use Types Packs/Day Years Used Date Smoking Tobacco: Former Cigarettes 0.5 52.8 1 971 - 12/11/2022 Smokeless Tobacco: Never Tobacco Cessation:Counseling Given: Not Answered Alcohol Use Standard Drinks/Week Comments Yes 0 (1 standard drink = 0.6 oz pure alcohol) varies-one beer or drink per night [facility] Utilities Answer Date Recorded Do you have trouble paying f or utilities (for example, heat, electricity, water, phone)? Yes 12/31/2023 PHQ-2 Answer Date Recorded PHQ-2 TOTAL SCORE 0 12/31/2023 Social Connections Answer Date Recorded Do you often feel lonely or isolated from those around you? 0 12/31/2023 Financial Resource Strain Answer Date R ecorded Difficulty of Paying Living Expenses 3 12/31/2023 Difficulty of Paying Living Expenses Not on file 12/31/2023 Food Insecurity Answer Date Recorded Do you worry your food will run out before you are able to buy more? 1 12/31/2023 Transportation Needs Answer Date Record ed Does lack of transportation keep you from medica l appointments? 1 12/31/2023 Does lack of transportation keep you from work, meetings or getting things that you need? 1 12/31/2023 Housing Stability Answer Date Recorded What is your housing situation today? 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 [employer] Not on file Not on file Not on file Obstetrics History Last Filed Vital Signs Vital Sign Reading Time Taken Comments Blood Pressure 140/90 02/17/2024 10:17 AM OPERATING ROOM ORDERLY Pulse 72 02/17/2024 10:11 AM OPERATING ROOM ORDERLY Temperature 36.9 C (98.5 F) 06/09/2021 6:54 PM CDT Respiratory Rate 14 05/04/2023 9:33 AM CDT Oxygen Saturation 97% 02/17/2024 10:11 AM OPERATING ROOM ORDERLY Inhaled Oxygen Concentration - - Weight 99.8 kg (220 lb) 12/31/2023 9:31 AM OPERATING ROOM ORDERLY Height 177.8 cm (5' 10) 12/31/2023 9:31 AM OPERATING ROOM ORDERLY Body Mass Index 31.57 12/31/2023 9:31 AM OPERATING ROOM ORDERLY Plan of Treatment Upcoming Encounters Date Type Department Care Team (Late st Contact Info) Description 03/07/2024 10:00 AM OPERATING ROOM ORDERLY Nurse/Clinic Staff Only [facility] [address] [place] [address] 03/30/2024 1:30 PM OPERATING ROOM ORDERLY Office Visit [facility] [address] [place] [phone] Silvino Castillo MBBS [address] [place], [place] [id number] Health Maintenance Due Date Last Done Comments RSV vaccine for adults or (1 - Risk 60-74 years 1-dose series) 2018 COVID-19 vaccine series ( season) 2023 07/25/2020, 06/27/2020 Influenza for age 65+ 10/24/2023 11/29/2019 , 02/23/2019, 02/13/2016, Additional history exists BMI (ht and wt on same day) for age 18+ 12/30/2024 12/31/2023, 07/02/2022, 03/18/2022, Additional history exists Depression screening for age 12+ 01/02/2025 01/03/2024, 12/31/2023, 07/02/2022, Additional history exists Colonoscopy through age 75 01/08/202501/08, 01/09/2020, 01/09/2020, Additional history exists Low Dose CT (for lung CA) ag e 50-80 01/09/2025 01/10/2024 Lipids for age 45-75 12/30/2028 12/31/2023, 03/03/2023, 08/27/2021, Additional history exists Tetanus booster 07/02/2032 07/02/2022, 12/22/2011 Hepatitis C screening for ag e 18-79 Completed 03/25/2016, 10/06/2013 Zoster (shingles) series for age 50+ Completed 04/08/2020, 02/05/2020 Pneumococcal series for age 50+ Completed 3, 01/22/2021 Tdap Completed 07/02/2022, 12/22/2011 AAA screening age 65-74 Completed 01/10/20 24, 08/21/2017, 07/13/2012 Procedures Procedure Name Priority Date/Time Associated Diagnosis Comments BASIC METABOLIC PANEL Routine 01/24/2024 9:03 AM OPERATING ROOM ORDERLY Unspecified essential hypertension CT CHEST SCREENING LOW DOSE WO CONTRAST Routine 01/10/2024 8:35 AM OPERATING ROOM ORDERLY Encounter for screening for lung cancer US ABD AORTA SCREENING Routine 01/10/2024 8:10 AM OPERATING ROOM ORDERLY Screening for AAA (aortic abdominal aneurysm) COMP METABOLIC PANEL Routine 12/31/2023 10:01 AM OPERATING ROOM ORDERLY Unspecified essential hypertension LIPID PANEL W REFLEX MEASURED LDL Routine 12/31/2023 10:01 AM OPERATING ROOM ORDERLY Mixed dyslipidemia HEMOGLOBIN A1C Routine 12/31/2023 10:01 AM OPERATING ROOM ORDERLY Prediabetes COLONOSCOPY SCREENING Routine 01/09/2020 11:14 AM OPERATING ROOM ORDERLY History of colon polyps ANTI HCV Routine 03/25/2016 11:44 AM OPERATING ROOM ORDERLY Neuropathy (HC) from Last 3 Months or Most Recently Relevant to Health Maintenance Results * (ABNORMAL) BASIC METABOLIC PANEL (01/24/2024 9:03 AM OPERATING ROOM ORDERLY) GLUCOSE 101(H) 65 - 99 mg/dL [facility] Comment: Fasting reference interval For someone without known diabetes, a glucose value between 100 and 125 mg/dL is consistent with prediabetes and should be confirmed with a follow-up test. UREA NITROGEN (BUN) 27(H) 7 - 25 mg/dL [facility] CREATININE 1.10 0.70 - 1.35 mg/dL [facility] EGFR 74 > OR = 60 mL/min/1.7 3m2 [facility] BUN/CREATININE RATIO 25(H) 6 - 22 (calc) [facility] SODIUM 138 135 - 146 mmol/L [facility] POTASSIUM 4.7 3.5 - 5.3 mmol/L [facility] CHLORIDE 105 98 - 110 mmol/L [facility] CARBON DIOXIDE 25 20 - 32 mmol/L [facility] ELECTROLYTE BALANCE 8 7 - 17 mmol/L (calc) [facility] CALCIUM 9.5 8.6 - 10.3 mg/dL [facility] Blood BLOOD SPECIMEN / Unknown 01/24/2024 9:03 AM OPERATING ROOM ORDERLY 01/24/2024 9:03 AM OPERATING ROOM ORDERLY us Maria Isabel Marquez DO CHEMISTRY Final Resul t [employer] [facility] [address] [place] [address], [facility] [address] [place] [address] * CT CHEST SCREENING LOW DOSE WO CONTRAST [[id number]] -- Criteria: must meet ALL: Age 50-80, current smoker or quit within the last 15 years, AND 20+ pack-year history (01/10/2024 8:35 AM OPERATING ROOM ORDERLY) Anatomical Region Laterality Modality Computed Tomogra phy Impressions 01/10/2024 2:43 PM OPERATING ROOM ORDERLY 1. Lung-RADS Category 2: Benign (based on imaging features or indolent behavior). 2. Management: Recommend annual screening with low-dose CT in 12 months. Please note that all CT scans at this facility use dose modulation, iterative reconstruction and/or weight-based dosing when appropriate to reduce radiation dose to as low as reasonably achievable. Dictated by: Arthur Benitez MD @01/10/2024 10:26:08 AM/dyana Narrative 01/10/2024 2:43 PM OPERATING ROOM ORDERLY For Patients: As a result of the Century Cures Act, medical imaging exams and procedure reports are released immediately into your electronic medical record. You may view this report before your referring provider. If you have questions, please contact your health care provider. CT CHEST SCREENING LOW-DOSE WITHOUT CONTRAST, 01/10/2024 INDICATION: Lung cancer screening. History of smoking. High risk patient. TECHNIQUE: Low-dose lung cancer screening non-contrast CT chest. Dose reduction techniques were used. COMPARISON: Chest radiographs 12/16/2022. This is a baseline CT examination. FINDINGS: NODULES: Scattered small, sub 6 millimeter solid nodules. Hand Glass Cutter nodules are 3 millimeter right lower lobe juxta fissural nodule on series 5, image 82. LUNGS AND PLEURA: Mild emphysema. Patchy peripheral ground-glass opacities with slight subpleural reticulation, suspicious for chronic interstitial lung disease. MEDIASTINUM: Normal. CORONARY ARTERY CALCIFICATION: Present. LIMITED UPPER ABDOMEN: Normal. MUSCULOSKELETAL: Thoracic spondylosis. Maria Isabel Marquez DO CT Final Resul t * US ABD AORTA SCREENING [[id number]] (01/10/2024 8:10 AM OPERATING ROOM ORDERLY) Anatomical Region Laterality Modality Abdomen, AORTA Ultrasound 01/10/2024 9:15 AM OPERATING ROOM ORDERLY Impressions 01/10/2024 9:15 AM OPERATING ROOM ORDERLY Negative abdominal aortic ultrasound except for mild atherosclerosis. Dictated by Allen Hastings MD @ 01/10/2024 9:15:29 AM (Electronically Signed) Narrative 01/10/2024 9:15 AM OPERATING ROOM ORDERLY For Patients: As a result of the Cures Act, medical imaging exams and procedure reports are released immediately into your electronic medical record. You may view this report before your referring provider. If you have questions, please contact your health care provider. INDICATION:Screening for abdominal aortic aneurysm TECHNIQUE:Conventional two-dimensional grayscale, color-flow and pulsed Doppler ultrasound examination of the abdominal aorta and the common iliac arteries. COMPARISON:None FINDINGS:Mild atherosclerotic disease is demonstrated, but the abdominal aorta is normal in caliber at 2.6 cm in maximal cross-sectional dimension above the level of the renal artery origins and 2.3 cm below the level of the renal arteries. The common iliac arteries are also normal in caliber. The right measures 1.3 cm in maximal cross-sectional dimension and the left 1.3 cm. Procedure Note Allen Hastings MD - 01/10/2024 For Patients: As a result of the Cures Act, medical imagingexams and procedure reports are released immediately into your electronicmedical record. You may view this report before your referring provider.If you have questions, please contact your health care provider. INDICATION:Screening for abdominal aortic aneurysm TECHNIQUE:Conventional two-dimensional grayscale, color-flow and pulsedDoppler ultrasound examination of the abdominal aorta and the common iliacarteries. COMPARISON:None FINDINGS:Mild atherosclerotic disease is demonstrated, but the abdominalaorta is normal in caliber at 2.6 cm in maximal cross-sectional dimensionabove the level of the renal artery origins and 2.3 cm below the level ofthe renal arteries. The common iliac arteries are also normal in caliber.The right measures 1.3 cm in maximal cross-sectional dimension and theleft 1.3 cm. IMPRESSION: Negative abdominal aortic ultrasound except for mild atherosclerosis. Dictated by Allen Hastings MD @ 01/10/2024 9:15:29 AM (Electronically Signed) Maria Isabel Marquez DO US Final Resul t * (ABNORMAL) HEMOGLOBIN A1C (12/31/2023 10:01 AM OPERATING ROOM ORDERLY) HEMOGLOBIN A1C 5.8(H) <5.7 % of total Hgb [facility] Comment: For someone without known diabetes, a hemoglobin A1c value between 5.7% and 6.4% is consistent with prediabetes and should be confirmed with a follow-up test. For someone with known diabetes, a value <7% indicates that their diabetes is well controlled. A1c targets should be individualized based on duration of diabetes, age, comorbid conditions, and other considerations. This assay result is consistent with an increased risk of diabetes. Currently, no consensus exists regarding use of hemoglobin A1c for diagnosis of diabetes for children. Blood BLOOD SPECIMEN / Unknown 12/31/2023 10:01 AM OPERATING ROOM ORDERLY 12/31/2023 10:02 AM OPERATING ROOM ORDERLY Narrative [facility] - 01/01/2024 5:10 AM OPERATING ROOM ORDERLY FASTING:NO FASTING: NO Maria Isabel Marquez DO CHEMISTRY Final Resul t [facility] [address] [place] [address], [facility] [address] [place] [address] * (ABNORMAL) LIPID PANEL W REFLEX MEASURED LDL (12/31/2023 10:01 AM OPERATING ROOM ORDERLY) CHOLESTEROL, TOTAL 177 <200 mg/dL [facility] HDL CHOLESTEROL 56 > OR = 40 mg/dL [facility] TRIGLYCERIDES 99 <150 mg/dL [facility] LDL-CHOLESTEROL 102(H) mg/dL (calc) [facility] Comment: Reference range: <100 Desirable range <100 mg/dL for primary prevention; <70 mg/dL for patients with CHD or diabetic patients with > or = 2 CHD risk factors. LDL-C is now calculated using the Martín calculation, which is a validated novel method providing better accuracy than the Friedewald equation in the estimation of LDL-C. Víctor ROSARIO et al. MINDY. 2013;310(19): 4741-6798 (http://education.Plug Apps/faq/EIY312) CHOL/HDLC RATIO 3.2 <5.0 (calc) [facility] NON HDL CHOLESTEROL 121 <130 mg/dL (calc) [facility] Comment: For patients with diabetes plus 1 major ASCVD risk factor, treating to a non-HDL-C goal of <100 mg/dL (LDL-C of <70 mg/dL) is considered a therapeutic option. Blood BLOOD SPECIMEN / Unknown 12/31/2023 10:01 AM OPERATING ROOM ORDERLY 12/31/2023 10:02 AM OPERATING ROOM ORDERLY Narrative [facility] - 01/01/2024 5:10 AM OPERATING ROOM ORDERLY FASTING:NO FASTING: NO us Maria Isabel Marquez DO CHEMISTRY Final Resul t [employer] [facility] [address] [place] [address], [facility] [address] [place] [address] * COMP METABOLIC PANEL (12/31/2023 10:01 AM OPERATING ROOM ORDERLY) [facility] GLUCOSE 82 65 - 139 mg/dL [facility] Comment: Non-fasting reference interval UREA NITROGEN (BUN) 19 7 - 25 mg/dL [facility] CREATININE 1.09 0.70 - 1.35 mg/dL [facility] EGFR 75 > OR = 60 mL/min/1. 73m2 [facility] BUN/CREATININE RATIO SEE NOTE: 6 (calc) [facility] Comment: Not Reported: BUN and Creatinine are within reference range. SODIUM 138 135 - 146 mmol/L [facility] POTASSIUM 4.5 3.5 - 5.3 mmol/L [facility] CHLORIDE 104 98 - 110 mmol/L [facility] CARBON DIOXIDE 24 20 - 32 mmol/L [facility] CALCIUM 9.6 8.6 - 10.3 mg/dL [facility] PROTEIN, TOTAL 7.2 6.1 - 8.1 g/dL [facility] ALBUMIN 4.3 3.6 - 5.1 g/dL [facility] GLOBULIN 2.9 1.9 - 3.7 g/dL (calc) [facility] ALBUMIN/GLOBULIN RATIO 1.5 1.0 - 2.5 (calc) [facility] BILIRUBIN, TOTAL 0.8 0.2 - 1.2 mg/dL [facility] ALKALINE PHOSPHATASE 85 35 - 144 U/L [facility] AST 18 10 - 35 U/L [facility] ALT 21 9 - 46 U/L [facility] Blood BLOOD SPECIMEN / Unknown 12/31/2023 10:01 AM OPERATING ROOM ORDERLY 12/31/2023 10:02 AM OPERATING ROOM ORDERLY Narrative [facility] - 01/01/2024 5:10 AM OPERATING ROOM ORDERLY FASTING:NO FASTING: NO Maria Isabel Marquez DO CHEMISTRY Final Resul t [facility] [address] [place] [address], [facility] [address] [place] [address] * COLONOSCOPY SCREENING (01/09/2020 11:14 AM OPERATING ROOM ORDERLY) us Maria Isabel Marquez DO GI PROCEDURE ORD Final Resu lt * ANTI HCV (03/25/2016 11:44 AM OPERATING ROOM ORDERLY) HEPATITIS C ANTIBODY Non-Reacti ve Non-Reacti ve 03/25/2016 8:44 PM OPERATING ROOM ORDERLY [facility] Blood BLOOD SPECIMEN / Unknown Venipuncture / Unknown 03/25/2016 11:44 AM OPERATING ROOM ORDERLY 03/25/2016 11:44 AM OPERATING ROOM ORDERLY Narrative [facility] - 03/25/2016 8:44 PM OPERATING ROOM ORDERLY Antibodies to HCV not detected; does not exclude the possibility of exposure to HCV. us Maria Isabel Marquez DO SEND OUTS Final Resul t [facility] [address] [place] [address], from Last 3 Months or Most Recently Relevant to Health Maintenance Insurance [facility] Advance Directives * Full Code (Latest Code Status on File) Date Activated Date Inactivated Comments 2012 9:18 AM 2012 4:25 PM Care Teams Veterans Contact Representative Relationship Specialty [place] [address] [place] [address] PCP - General Family Practice 11/06/13
--- OUTSIDE RECORDS SUMMARY | 2024-02-25 19:14 | XMS_ITS | Referral Summary ---
Author Organization [facility] Address [address] [place] [address] Care Team Providers Care Stamp Analyst Name Role Phone Maria Isabel Marquez DO Primary Care Provider [phone] Allergies Active Allergy Reactions Criticality Noted Date [...] on file Legal Sex Male 3:32 AM MAIL CARRIER TECHNICIAN Gender Identity Not on file Sexual Orientation Not on file Last Filed Vital Signs Vital Sign Reading Time Taken Comments Blood Pressure 151/90 04/26/2022 8:50 AM MAIL CARRIER TECHNICIAN Pulse 56 04/26/2022 8:50 AM MAIL CARRIER TECHNICIAN Temperature 36.7 C (98.1 F) 04/26/2022 7:38 AM MAIL CARRIER TECHNICIAN Respiratory Rate 20 04/26/2022 7:38 AM MAIL CARRIER TECHNICIAN Oxygen Saturation 100% 04/26/2022 8:50 AM MAIL CARRIER TECHNICIAN Inhaled Oxygen Concentration - - Weight 88.5 kg (195 lb) 12/02/2018 5:19 AM CDT Height - - Body Mass Index - - Plan of Treatment Not on file Procedures Procedure Name Priority Date/Time Associated Diagnosis Comments COMPREHENSIVE METABOLIC PANEL STAT 04/26/2022 8:47 AM MAIL CARRIER TECHNICIAN OCCULT BLOOD STOOL STAT 12/26/2004 6: 20 AM MAIL CARRIER TECHNICIAN from Last 3 Months or Most Recently Relevant to Health Maintenance Results * (ABNORMAL) Comprehensive metabolic panel (04/26/2022 8:47 AM MAIL CARRIER TECHNICIAN) Sodium 137 136 - 145 mmol/L 04/26/2022 9:12 AM [facility] Potassium 4.6 3.4 - 5.3 mmol/L 04/26/2022 9:12 AM [facility] Chloride 103 98 - 107 mmol/L 04/26/2022 9:12 AM [facility] Carbon Dioxide (CO2) 25 22 - 29 mmol/L 04/26/2022 9:12 AM [facility] Anion Gap 9 7 - 15 mmol/L 04/26/2022 9:12 AM [facility] Urea Nitrogen 23.3(H) 8.0 - 23.0 mg/dL 04/26/2022 9:12 AM [facility] Creatinine 1.02 0.67 - 1.17 mg/dL 04/26/2022 9:12 AM [facility] Calcium 9.2 8.8 - 10.2 mg/dL 04/26/2022 9:12 AM [facility] Glucose 129(H) 70 - 99 mg/dL 04/26/2022 9:12 AM [facility] Alkaline Phosphatase 78 40 - 129 U/L 04/26/2022 9:12 AM [facility] AST 32 10 - 50 U/L 04/26/2022 9:12 AM [facility] ALT 42 10 - 50 U/L 04/26/2022 9:12 AM [facility] Protein Total 7.1 6.4 - 8.3 g/dL 04/26/2022 9:12 AM [facility] Albumin 4.2 3.5 - 5.2 g/dL 04/26/2022 9:12 AM [facility] Bilirubin Total 0.6 <=1.2 mg/dL 04/26/2022 9:12 AM [facility] GFR Estimate 82 >60 mL/min/1.7 3m2 04/26/2022 9:12 AM [facility] Comment:eGFR calculated us2020 CKD-EPI equation. Blood VENOUS LINE / Unknown Venipuncture / Unknown 04/26/2022 8:47 AM MAIL CARRIER TECHNICIAN 04/26/2022 8:54 AM MAIL CARRIER TECHNICIAN us Rebel Irving MD LAB - BLOOD ORDERABLES Fi nal Result [facility] [address] [facility] (1st floor, no room number) [place] [address], [facility] [phone] * Occult blood stool (12/26/2004 6:20 AM MAIL CARRIER TECHNICIAN) Occult Blood Negative NEG MISYS 12/26/2004 6:20 AM MAIL CARRIER TECHNICIAN 12/26/2004 6:23 AM MAIL CARRIER TECHNICIAN us Camille De Anda MD LAB - STOOLS ORDERABLES Final Result MISYS from Last 3 Months or Most Recently Relevant to Health Maintenance Insurance [facility] [place] [address] [facility] Care Teams Stamp Analyst Relationship Specialty Start Date End Date Maria Isabel Marquez DO PCP - General Family Practice 12/02/18
--- OUTSIDE RECORDS SUMMARY | 2024-02-25 19:14 | XMS_ITS | Clinical Summary ---
Author Organization [facility] Address [address] [place] [address] Care Team Providers Care Internet Project Manager Name Role Phone Maria Isabel Marquez DO Primary Care Provider [phone] Allergies Active Allergy Reactions Criticality Noted Date [...] on file Legal Sex Male 3:32 AM DIRECTOR OF NATIONAL SALES Gender Identity Not on file Sexual Orientation Not on file Last Filed Vital Signs Vital Sign Reading Time Taken Comments Blood Pressure 151/90 04/26/2022 8:50 AM DIRECTOR OF NATIONAL SALES Pulse 56 04/26/2022 8:50 AM DIRECTOR OF NATIONAL SALES Temperature 36.7 C (98.1 F) 04/26/2022 7:38 AM DIRECTOR OF NATIONAL SALES Respiratory Rate 20 04/26/2022 7:38 AM DIRECTOR OF NATIONAL SALES Oxygen Saturation 100% 04/26/2022 8:50 AM DIRECTOR OF NATIONAL SALES Inhaled Oxygen Concentration - - Weight 88.5 [...] COMPREHENSIVE METABOLIC PANEL STAT 04/26/2022 8:47 AM DIRECTOR OF NATIONAL SALES OCCULT BLOOD STOOL STAT 12/26/2004 6: 20 AM DIRECTOR OF NATIONAL SALES from Last 3 Months or Most Recently Relevant to Health Maintenance Results * (ABNORMAL) Comprehensive metabolic panel (04/26/2022 8:47 AM DIRECTOR OF NATIONAL SALES) Sodium 137 136 - 145 mmol/L 04/26/2022 9:12 AM DIRECTOR OF NATIONAL SALES [facility] Potassium 4.6 3.4 - 5.3 mmol/L 04/26/2022 9:12 AM DIRECTOR OF NATIONAL SALES [facility] Chloride 103 98 - 107 mmol/L 04/26/2022 9:12 AM [facility] Carbon Dioxide (CO2) 25 22 - 29 mmol/L 04/26/2022 9:12 AM [facility] Anion Gap 9 7 - 15 mmol/L 04/26/2022 9:12 AM [facility] Urea Nitrogen 23.3(H) 8.0 - 23.0 mg/dL 04/26/2022 9:12 AM [facility] Creatinine 1.02 0.67 - 1.17 mg/dL 04/26/2022 9:12 AM [facility] Calcium 9.2 8.8 - 10.2 mg/dL 04/26/2022 9:12 AM [facility] Glucose 129(H) 70 - 99 mg/dL 04/26/2022 9:12 AM [facility] Alkaline Phosphatase 78 40 - 129 U/L 04/26/2022 9:12 AM [facility] AST 32 10 - 50 U/L 04/26/2022 9:12 AM [facility] ALT 42 10 - 50 U/L 04/26/2022 9:12 AM [facility] Protein Total 7.1 6.4 - 8.3 g/dL 04/26/2022 9:12 AM [facility] Albumin 4.2 3.5 - 5.2 g/dL 04/26/2022 9:12 AM [facility] Bilirubin Total 0.6 <=1.2 mg/dL 04/26/2022 9:12 AM [facility] GFR Estimate 82 >60 mL/min/1.7 3m2 04/26/2022 9:12 AM [facility] Comment:eGFR calculated usal g 2020 CKD-EPI equation. Blood VENOUS LINE / Unknown Venipuncture / Unknown 04/26/2022 8:47 AM DIRECTOR OF NATIONAL SALES 04/26/2022 8:54 AM [facility] Rebel Irving MD LAB - BLOOD ORDERABLES Fi nal Result LABORATORY [facility] [address] Lab (1st floor, no room number) [place] [address], [facility] [phone] * Occult blood stool (12/26/2004 6:20 AM DIRECTOR OF NATIONAL SALES) Occult Blood Negative NEG MISYS 12/26/2004 6:20 AM DIRECTOR OF NATIONAL SALES 12/26/2004 6:23 AM DIRECTOR OF NATIONAL SALES Camille De Anda MD LAB - STOOLS ORDERABLES Final Result MISYS from Last 3 Months or Most Recently Relevant to Health Maintenance Insurance [facility] Care Teams Internet Project Manager Relationship Specialty Start Date End Date Maria Isabel Marquez DO PCP - General Family Practice 12/02/18
[2024-02-25 19:39] LABS: Basophils Absolute Auto 0.01 K/uL (0.00-0.30); Basophils Percent Auto 0.1 % (0.0-3.0); Eosinophils Absolute Auto 0.26 K/uL (0.00-0.50); Eosinophils Percent Auto 3.2 % (0.0-7.0); Hemoglobin* 15.2 gm/dL (13.5-17.5); Immature Granulocytes Abs Auto 0.01 K/uL (0.00-0.30); Immature Granulocytes Pct Auto 0.1 %; Lymphocytes Absolute Auto 1.98 K/uL (0.90-2.90); Mean Corpuscular HGB Conc 35 gm/dL (32-36); Mean Corpuscular Hemoglobin 33 pg (26-34); Mean Corpuscular Volume 95 fL (80-100); Monocytes Percent Auto 9.2 % (0.0-11.0); Neutrophils Absolute Auto 5.22 K/uL (1.7-7.0); Neutrophils Percent Auto 63.4 % (42.0-72.0); Platelet Count* 254 K/uL (140-440); RDW Coefficient of Variation % 12.6 % (11.5-15.5); Red Blood Count 4.61 m/uL (4.30-5.90); White Blood Count* 8.24 K/uL (4.50-11.00)
[2024-02-25 19:48] LABS: Slide Review Reflex No
[2024-02-25 20:01] LABS: Albumin* 4.3 g/dL (3.3-5.0); Chloride* 105 mmol/L (96-114)
[2024-02-25 20:02] LABS: Potassium* 3.9 mmol/L (3.6-5.1); Sodium* 135 mmol/L (135-149)
[2024-02-25 20:04] LABS: Alanine Aminotransferase* 72 U/L (4-50); Alkaline Phosphatase* 62 U/L (40-150); Anion Gap 8 mEq/L (7-15); Aspartate Amino Transferase* 110 U/L (12-35); Bilirubin Total* 0.6 mg/dL (0.1-1.5); Blood Urea Nitrogen* 23 mg/dL (7-30); Carbon Dioxide* 22 mmol/L (20-32); Creatinine* 1.2 mg/dL (0.5-1.5); Est. Creatinine Clearance* 62.52; Estimated Glomerular Filt Rate 67 ml/min; Total Protein* 7.1 g/dL (6.0-8.3)
[2024-02-25 20:05] LABS: Glucose* 109 mg/dL (60-115); Magnesium* 2.3 mg/dL (1.5-2.6)
[2024-02-25 20:06] VITALS: BP 142/89; PULSE 50; RESP 18; TEMP 36; O2SAT 96
--- NOTE | 2024-02-25 20:06 | CRLHL7_ITS ---
For Patients: As a result of the Cures Act, medical imaging exams and procedure reports are released immediately into your electronic medical record. You may view this report before your referring provider. If you have questions, please contact your health care provider. Indication: Hypertension Technique: Single view of the chest Comparison: None Findings/Impression: Cardiomegaly and suspected mild volume overload. Dictated by Blayne Beach MD @ 02/25/2024 9:05:58 PM (Electronically Signed)
[2024-02-25 21:38] LABS: NT Pro B Type NatriureticPept* 271 pg/mL
[2024-02-25] MEDS: FUROSEMIDE 40 MG TABLET PO (22:05)
[2024-02-25 22:06] VITALS: BP 144/84; PULSE 50; RESP 16; O2SAT 97
== END 2024-02-25 22:00 | disposition home or self-care (01) ==
PROVIDERS: Emergency Provider Family Medicine; PCP Family Medicine
DX: I50.9 Heart failure, unspecified (principal); R51.9 Headache, unspecified; I10 Essential (primary) hypertension
CPT/HCPCS: 36415; 70450; 71045; 80053; 83735; 83880; 84484; 85025; 93005; 99284; 99285; A9270

== ENCOUNTER 2024-11-20 08:42 | Day surgery (SDC) | payer MEDICARE, SELFPAY ==
[2024-11-20] VITALS (13 sets, daily range): BP systolic 107–168; BP diastolic 65–89; PULSE 50–55; RESP 16; TEMP 36.5–36.7; O2SAT 91–96; BMI 32.8
[2024-11-20] MEDS: LACTATED RINGERS 1000 ML 1,000 ML 100 ML IV ×2 (09:05→11:21)
[2024-11-20] MEDS: SODIUM CHLORIDE 0.9 % (FLUSH) 10 ML SYRINGE IVF (09:33)
--- NOTE | 2024-11-20 10:14 | W.PM.H&PU ---
History & Physical Update History & Physical Update H&P Reviewed and patient assessed: The following changes are noted below H&P Updates: Patient is working on smoking cessation. He states he is still smoking a few cigarettes a day we discussed increased risk of infection and delayed wound healing in the setting of smoking, particularly using permanent mesh. He wishes to proceed.
[2024-11-20] MEDS: CLINDAMYCIN 900 MG/50 ML-D5W IVPB (10:32)
--- NOTE | 2024-11-20 10:38 | PM.GSPRC ---
Operative Note Date of procedure: 11/20/24 Pre-op diagnosis: Incarcerated umbilical hernia Post-op diagnosis: Same Type of Procedure: Open repair 2 cm incarcerated umbilical hernia with mesh Indications: The patient is a 64-year-old male with a symptomatic umbilical hernia that has more recently become uncomfortable with lifting. After discussion of options, he has elected to proceed with repair. Procedure Description: After discussing the risks and benefits of the procedure, the patient signed informed consent.? The operative site was marked and the patient was brought to the operating room and placed on the operating table in supine position.? Care was taken to pad the patient's pressure points.?? The patient was then intubated by anesthesia.?? The operative site was then prepped and draped in the usual sterile fashion.? A time-out was then performed. Local anesthetic was injected into the fascia, skin and subcutaneous tissues. A curvilinear incision was made at the umbilicus. Dissection was carried down into the subcutaneous tissue using cautery. The hernia sac was encountered. Dissection was taken down to the fascia, and the umbilical skin was carefully dissected off of the hernia sac. Once the hernia sac was dissected out circumferentially, it was reduced. The fascial edges were then cleared circumferentially. The hernia was 2 cm in size and so the decision was made to use a piece of mesh. A preperitoneal pocket was created using a combination of blunt dissection and cautery. Hemostasis appeared adequate. Once the posterior fascia was clear, a piece of [address] hernia mesh was placed in the preperitoneal space with care to ensure that it laid flat. This was secured into place using 0 PDS interrupted sutures. The tails were then trimmed and the fascial opening was closed with a running 0 PDS. The umbilicus was reapproximated to the fascia. The skin was then closed with running absorbable suture. A sterile dressing was then applied. ? The patient was then woken and transported to the recovery area in stable condition. ? The patient tolerated the procedure well. Findings: 2 cm fat containing incarcerated hernia Implants: Bard Ventralex mesh, 6 cm Anesthesia: GETA Surgeon: Gisell Shannon MD Estimated blood loss (mL): 5 Condition: stable Disposition: PACU
--- NOTE | 2024-11-20 11:14 | SUR.OPER ---
RIGHT LOWER ABDOMINAL REDNESS NEAR ABDOMINAL FOLD
[2024-11-20] MEDS: BUPIVACAINE 0.25% 30 ML INJECTION (11:15)
--- NOTE | 2024-11-20 11:43 | P.ANES_ITS ---
Anesthesia Charges Start Date/Time Anesthesia Start Date: 11/20/24 Anesthesia Start Time: 10:38 Stop Date/Time Anesthesia Stop Date: 11/20/24 Anesthesia Stop Time: 11:37 Coding CPT Codes CPT Codes: ANESTH REPAIR OF HERNIA - 71802 ([id number]) P3 - PATIENT W/SEVERE SYS DISEASE, QK - CALCULATING MACHINE MECHANIC 2-4 CNCRNT ANES PROC, QX - AIR BRAKE MECHANIC SVC W/ MD MED DIRECTION
--- NOTE | 2024-11-20 11:43 | W.ANESCHARGE ---
Anesthesia Charges Start Date/Time Anesthesia Start Date: 11/20/24 Anesthesia Start Time: 10:38 Stop Date/Time Anesthesia Stop Date: 11/20/24 Anesthesia Stop Time: 11:37 Coding CPT Codes CPT Codes: ANESTH REPAIR OF HERNIA - 59657 ([id number]) P3 - PATIENT W/SEVERE SYS DISEASE, QK - FRANCHISE SALES REPRESENTATIVE 2-4 CNCRNT ANES PROC, QX - ANTHROPOLOGY INSTRUCTOR SVC W/ MD MED DIRECTION
--- NOTE | 2024-11-20 11:54 | P.ANES_ITS ---
Anesthesia Charges Start Date/Time Anesthesia Start Date: 11/20/24 Anesthesia Start Time: 10:38 Stop Date/Time Anesthesia Stop Date: 11/20/24 Anesthesia Stop Time: 11:37 Coding CPT Codes CPT Codes: ANESTH REPAIR OF HERNIA - 15325 ([id number]) QK - ENGINEERING SPECIALIST TECHNICIAN 2-4 CNCRNT ANES PROC, QX - FITNESS AND WELLNESS COORDINATOR SVC W/ MD MED DIRECTION, P3 - PATIENT W/SEVERE SYS DISEASE
--- NOTE | 2024-11-20 11:54 | W.ANESCHARGE ---
Anesthesia Charges Start Date/Time Anesthesia Start Date: 11/20/24 Anesthesia Start Time: 10:38 Stop Date/Time Anesthesia Stop Date: 11/20/24 Anesthesia Stop Time: 11:37 Coding CPT Codes CPT Codes: ANESTH REPAIR OF HERNIA - 53525 ([id number]) QK - DISPATCHER MAINTENANCE SERVICE 2-4 CNCRNT ANES PROC, QX - CUSHION ASSEMBLER SVC W/ MD MED DIRECTION, P3 - PATIENT W/SEVERE SYS DISEASE
== END 2024-11-20 12:58 | disposition home or self-care (01) ==
PROVIDERS: PCP Family Medicine; Visit Provider Surgery
PROC: (CPT 49592; principal; 2024-11-20 10:30)
DX: K42.0 Umbilical hernia with obstruction, without gangrene (principal)
CPT/HCPCS: 49592; 00830; A4467; C1781; J0330; J0665; J0736; J1100; J2405; J2704; J3010; J3490; J7120